=== PATIENT | female | born 1965 | race Caucasian/White ===

== ENCOUNTER 2018-08-08 06:05 | Day surgery (SDC) | payer MEDICAID ==
[~2018-08-08] VITALS: Ht 154.9 cm; Wt 81.6 kg
[2018-08-08] MEDS ORDERED: SIMV20TA1 PO (07:18)
[2018-08-08] MEDS ORDERED: fentaNYL 0.05 MG/ML VIAL ONE (07:39)
[2018-08-08] MEDS ORDERED: LIDOCAINE 2% 100 MG/5 ML UJET TP ONE (07:39)
[2018-08-08] MEDS ORDERED: fentaNYL 0.05 MG/ML VIAL IVP ONE (08:30)
[2018-08-08] MEDS ORDERED: fentaNYL 0.05 MG/ML VIAL IVP SCH (08:38)
== END 2018-08-08 08:35 | disposition home or self-care (01) ==
LOC: MDS 06:05 → MMU 06:17 → MDS 08:35
PROVIDERS: ATTEND Internal Medicine Gastroenterology
DX: Z12.11 Encounter for screening for malignant neoplasm of colon (principal); K57.30 Diverticulosis of large intestine without perforation or abscess without bleeding; E66.9 Obesity, unspecified; E78.00 Pure hypercholesterolemia, unspecified; Z79.899 Other long term (current) drug therapy; Z79.1 Long term (current) use of non-steroidal anti-inflammatories (NSAID); Z68.38 Body mass index [BMI] 38.0-38.9, adult; Z90.49 Acquired absence of other specified parts of digestive tract; Z90.710 Acquired absence of both cervix and uterus
CPT/HCPCS: 45378; J3010